=== PATIENT | female | born 1970 | race Caucasian/White ===

== ENCOUNTER → 2018-12-19 | Day surgery (SDC) | payer BC ==
[2018-12-15 14:28] VITALS: BMI 32.3
[~2018-12-19] MED LIST: BUPIVACAINE HCL/PF 0.25% (2.5MG/ML) 10 ML VIAL IJ ONE; DEXAMETHASONE SOD PHOSPHATE 4 MG/1 ML VIAL ONE; KETOROLAC TROMETHAMINE 30 MG/1 ML VIAL ONE; LACTATED RINGERS SOLUTION 1,000 ML IV SCH; LIDOCAINE HCL/PF 2% SDV 5ML VIAL ONE; MIDAZOLAM HCL 2 MG/2 ML SINGLE DOSE VIAL ONE; ONDANSETRON 4 MG/2 ML VIAL ONE; PROPOFOL 20 ML ONE; SODIUM CHLORIDE 0.9% P/F 10 ML VIAL IJ ONE; ceFAZolin SODIUM 1 GM VIAL ONE; oxyCODONE HCL 5 MG TABLET ONE; oxyCODONE HCL 5 MG TABLET PO PRN
[2018-12-19 10:19] VITALS: TEMP 98.2
[2018-12-19 11:35] VITALS: BP 120/74; PULSE 67
--- NOTE | 2018-12-20 11:11 | OP ---
DATE OF OPERATION: 12/19/2018 PREOPERATIVE DIAGNOSIS: 1. Left knee medial and lateral meniscal tear. 2. Left knee cartilage injury. 3. Left knee synovitis. POSTOPERATIVE DIAGNOSIS: 1. Left knee medial and lateral meniscal tear. 2. Left knee cartilage injury. 3. Left knee synovitis. PROCEDURE: 1. Left knee arthroscopy, partial meniscectomy medial and lateral meniscus. CPT code 37298. 2. Left knee arthroscopy with chondroplasty, abrasion-plasty. CPT code 95718. 3. Left knee arthroscopy with synovectomy. CPT code 51251. SURGEON: Lewis Owens MD STADIUM MANAGER: ROYA Valdovinos ANESTHESIA: ANESTHESIOLOGIST: FINDINGS: 1. Medial meniscus body to posterior horn tear. 2. Lateral meniscus posterior horn tear. 3. Synovitis, medial femoral condyle. 4. ACL and PCL intact. 5. . 6. Grade 1-2 cartilage injury, patellofemoral trochlea and patellofemoral joint. PROCEDURE: Informed consent was obtained. The patient came to the operating room, where the lower extremity was prepped and draped in a sterile fashion. A tourniquet was placed on the upper thigh, but not inflated. Using standard arthroscopic technique, a lateral incision and portal was made to allow for introduction of the camera into the suprapatellar bursa. This was then taken to the medial joint line, where under direct visualization, a medial incision and portal was made. Excessive synovium noted in the medial, lateral and patellofemoral and notch area was removed by an upbiter, shaver and Bovie cautery. This was found to bring in inflammatory tissue into the joint surface, a source of pain and dysfunction. Probing of the medial and lateral meniscus found tears, as described in the findings. These were removed with the upbiter and shaver and taken back to a stable rim. Grade 2 to 3 degenerative changes were treated with a chondroplasty, removing all flaking surfaces with low-setting Bovie along the periphery to prevent further flaking. Grade 4 changes, as noted, were treated with an abrasion plasty, creating a bleeding surface at the bone/cartilage interface. Aggressive debridement with shaver/bur created bleeding surface. Microfracture also done when indicated in findings. All areas of the knee were once again re-examined. The knee was then drained and a single suture was placed in all portals. A sterile dressing was placed and the patient was transferred to the recovery room without complication. The PA listed above was present and assisted at surgery. Their presence was absolutely medically necessary for the completion of the procedure. They helped hold the arthroscopy, pass instruments (and implants when indicated), and the procedure could not have been completed without their assistance. LEWIS OWENS M.D. [id number]
--- NOTE | 2018-12-23 16:14 | PATH ---
Surgical Pathology Report Patient Name: PARTHA REDDY [facility]. Rec. #: [id number] /Age/Gender: 1970 (Age: 48) / F Account: [id number] Location: [facility] AM[facility] Taken: 12/19/2018 Received: 12/19/2018 Reported: 12/23/2018 Physicians: Anshul Jeff M.D. Specimen(s) Received LEFT KNEE SHAVINGS Clinical History Derangement left knee Final Diagnosis LEFT KNEE SHAVINGS: CARTILAGINOUS AND FIBROSYNOVIAL TISSUE WITH DEGENERATIVE CHANGE. Electronically Signed Denisse Gonzales M.D. Gross Description Received in formalin, labeled "left knee shavings," is a 4.0 x 3.3 x 0.3 cm. aggregate of jacques-yellow soft tissue fragments. A livestock sales representative portion is submitted in one cassette. /12/22/2018 saudi12/22/2018
== END | disposition home or self-care (01) ==
LOC: FASU 06:55
PROVIDERS: ATTEND Orthopaedic Surgery
PROC: 0SBD4ZZ Excision of Left Knee Joint, Percutaneous Endoscopic Approach (ICD-10-PCS; 2018-12-19)
PROC: 0SBD4ZZ Excision of Left Knee Joint, Percutaneous Endoscopic Approach (ICD-10-PCS; 2018-12-19)
PROC: 0SBD4ZZ Excision of Left Knee Joint, Percutaneous Endoscopic Approach (ICD-10-PCS; principal; 2018-12-19 08:30)
DX: S83.242A Other tear of medial meniscus, current injury, left knee, initial encounter (principal); S83.282A Other tear of lateral meniscus, current injury, left knee, initial encounter; S83.8X2A Sprain of other specified parts of left knee, initial encounter; M65.862 Other synovitis and tenosynovitis, left lower leg; X58.XXXA Exposure to other specified factors, initial encounter; Y93.9 Activity, unspecified; Y92.9 Unspecified place or not applicable
CPT/HCPCS: 84703; 88304-TC; 94760

== ENCOUNTER 2019-03-16 09:26 | Inpatient (IN) | payer BC ==
[2019-03-13 12:39] VITALS: BMI 34.3
[2019-03-16] MEDS ORDERED: MIDAZOLAM HCL 2 MG/2 ML SINGLE DOSE VIAL ONE ×2 (11:21→12:11)
[2019-03-16] MEDS ORDERED: BUPIVACAINE HCL/PF (5 MG/ML) 30 ML VIAL IJ ONE (11:21)
--- NOTE | 2019-03-16 11:52 | HP ---
Admitting History and Physical - Admission Chief Complaint: Morbid obesity History Source: Patient Limitations to Obtaining History: No Limitations - Past Medical History Pulmonary: Yes: Asthma ...LMP: 03/13/19 - Past Surgical History Additional Past Surgical History: Left knee surgery - Smoking History Smoking history: Never smoked Aproximately how many cigarettes per day: 0 - Alcohol/Substance Use Hx Alcohol Use: Yes (SOCIAL) Home Medications - Allergies Allergies/Adverse Reactions: Allergies Allergy/AdvReac Type Severity Reaction Status Date / Time No Known Allergies Allergy Verified 03/16/19 10:08 - Home Medications Home Medications: Ambulatory Orders Fluticasone/Salmeterol [Advair 250-50 Diskus] 1 each IH HS 12/15/18 Montelukast Sodium [Singulair] 10 mg PO HS 12/15/18 Albuterol Sulfate Inhaler - [Ventolin HFA Inhaler -] 1 - 2 inh IH Q4H PRN Family Disease History - Family Disease History Family History: Denies Review of Systems - Review of Systems Constitutional: denies: Chills, Fever Neck: reports: No Symptoms Cardiovascular: reports: No Symptoms Respiratory: reports: No Symptoms Gastrointestinal: reports: No Symptoms Neurological: reports: No Symptoms Pain Intensity: 0 Physical Examination Vital Signs: Vital Signs Temperature 98.4 F 03/16/19 09:41 Pulse Rate 78 03/16/19 09:41 Respiratory Rate 17 03/16/19 09:41 Blood Pressure 132/88 03/16/19 09:41 O2 Sat by Pulse Oximetry (%) 99 03/16/19 09:43 Constitutional: Yes: Calm Cardiovascular: Yes: WNL Respiratory: Yes: Regular Gastrointestinal: Yes: Soft, Abdomen, Obese Neurological: Yes: Alert, Oriented Problem List - Problems (1) Morbid obesity due to excess calories Code(s): E66.01 - MORBID (SEVERE) OBESITY DUE TO EXCESS CALORIES (2) Obstructive sleep apnea Code(s): G47.33 - OBSTRUCTIVE SLEEP APNEA (ADULT) (PEDIATRIC) Assessment/Plan Laparoscopic possible open vertical sleeve gastrectomy possible liver biopsy, upper endoscopy
[2019-03-16] MEDS ORDERED: ceFAZolin SODIUM 1 GM VIAL ONE (12:10)
[2019-03-16] MEDS ORDERED: ONDANSETRON 4 MG/2 ML VIAL ONE ×2 (12:10→13:41)
[2019-03-16] MEDS ORDERED: DEXAMETHASONE SOD PHOSPHATE 4 MG/1 ML VIAL ONE (12:10)
[2019-03-16] MEDS ORDERED: fentaNYL CITRATE 250 MCG/5 ML VIAL ONE (12:10)
[2019-03-16] MEDS ORDERED: ROCURONIUM BROMIDE 50 MG/5 ML VIAL ONE (12:11)
[2019-03-16] MEDS ORDERED: BUPIVACAINE HCL 0.25% 125 MG/50 ML VIAL ONE (13:36)
[2019-03-16] MEDS ORDERED: NEOSTIGMINE METHYLSULFATE 0.5 MG/ML - 10 ML MDV ONE (13:43)
[2019-03-16] MEDS ORDERED: GLYCOPYRROLATE 0.2 MG/1 ML VIAL ONE (13:44)
[2019-03-16] MEDS ORDERED: ALBUTEROL SO4 8 GM HFA INHALER IH PRN (13:50)
[2019-03-16] MEDS ORDERED: FAMOTIDINE 20 MG/50 ML IVPB 20 MG/50 ML MG IVPB ONE (13:52)
--- NOTE | 2019-03-16 13:53 | OP ---
Operative Note - Note: Operative Date: 03/16/19 Pre-Operative Diagnosis: Morbid obesity. Severe obstructive sleep apnea Operation: Diagnostic laparoscopy. Laparoscopic vertical sleeve gastrectomy. Laparoscopic wedge liver biopsy Post-Operative Diagnosis: Same as Pre-op (as well as hepatomegaly) Surgeon: Jake Jaffe Telephone Information Supervisor: David Benitez Anesthesia: General Specimens Removed: Greater curvature of stomach. Liver biopsy Estimated Blood Loss (mls): 30 Drains & Tubes with Location: 36 fr bougie Operative Report Dictated: Yes
[2019-03-16] MEDS ORDERED: SODIUM CHLORIDE 1,000 ML IV SCH (14:00)
[2019-03-16] MEDS: METOCLOPRAMIDE HCL INJECTION 10 MG/2 ML VIAL IVPUSH SCH ×3 (14:05→21:02)
[2019-03-16] MEDS: ACETAMINOPHEN 1000 MG/100 ML VIAL (NON FORMULARY) IVPB SCH ×3 (14:10→21:01)
[2019-03-16] MEDS ORDERED: FAMOTIDINE 20 MG PREMIXED IVPB IVPB ONE (14:15)
[2019-03-16] MEDS ORDERED: HALOPERIDOL LACTATE 5 MG/ML ONE (14:24)
[2019-03-16] MEDS ORDERED: ONDANSETRON 4 MG/2 ML VIAL IVPUSH PRN (14:28)
[2019-03-16] MEDS ORDERED: HALOPERIDOL LACTATE 5 MG/ML IV ONE (14:30)
[2019-03-16 15:12] LABS: ALBUMIN 4.2 g/dl (3.4-5.0); BILIRUBIN,TOTAL 0.6 mg/dl (0.2-1); CREATININE 0.7 mg/dl (0.55-1.3); POTASSIUM 4.2 mmol/L (3.5-5.1); TOT PROT 7.4 g/dl (6.4-8.2)
[2019-03-16 15:53] LABS: HEMOGLOBIN 14.5 GM/dl (10.7-15.3); MCH 29.3 pg (25.7-33.7); MCHC 32.2 g/dl (32.0-36.0); MEAN CELL VOLUME 90.9 fl (80-96); MEAN PLT VOLUME 8.9 fl (7.5-11.1); PLATELET COUNT 259 K/MM3 (134-434); RBC 4.95 M/mm3 (3.60-5.2); RDW 12.8 % (11.6-15.6); WHITE BLOOD COUNT 12.9 K/mm3 (4.0-10.8)
--- NOTE | 2019-03-16 16:27 | CONSULT ---
Consult Consult Specialty:: IM Reason for Consultation:: post-op medical management - History of Present Illness Chief Complaint: obese. denies chest pain, palpitations, nausea, vomiting, diarrhea History of Present Illness: 49 yo man came in for Laparoscopic possible open vertical sleeve gastrectomy possible liver biopsy, upper endoscopy - History Source History Provided By: Patient Limitations to Obtaining History: No Limitations - Past Medical History Pulmonary: Yes: Asthma ...LMP: 03/13/19 - Alcohol/Substance Use Hx Alcohol Use: Yes (SOCIAL) - Smoking History Smoking history: Never smoked Aproximately how many cigarettes per day: 0 Home Medications - Allergies Allergies/Adverse Reactions: Allergies Allergy/AdvReac Type Severity Reaction Status Date / Time No Known Allergies Allergy Verified 03/16/19 10:08 - Home Medications Home Medications: Ambulatory Orders Fluticasone/Salmeterol [Advair 250-50 Diskus] 1 each IH HS 12/15/18 Montelukast Sodium [Singulair] 10 mg PO HS 12/15/18 Albuterol Sulfate Inhaler - [Ventolin HFA Inhaler -] 1 - 2 inh IH Q4H PRN Famotidine [Pepcid] 20 mg PO BID #60 tablet 03/16/19 Review of Systems - Review of Systems Constitutional: reports: No Symptoms Eyes: reports: No Symptoms HENT: reports: No Symptoms Neck: reports: No Symptoms Cardiovascular: reports: No Symptoms Respiratory: reports: No Symptoms Gastrointestinal: reports: No Symptoms Genitourinary: reports: No Symptoms Musculoskeletal: reports: No Symptoms Integumentary: reports: No Symptoms Neurological: reports: No Symptoms Endocrine: reports: No Symptoms Hematology/Lymphatic: reports: No Symptoms Psychiatric: reports: No Symptoms Physical Exam Vital Signs: Vital Signs Temperature 97.6 F 03/16/19 16:04 Pulse Rate 65 03/16/19 16:04 Respiratory Rate 18 03/16/19 16:04 Blood Pressure 125/67 03/16/19 16:04 O2 Sat by Pulse Oximetry (%) 96 03/16/19 16:03 Constitutional: Yes: Well Nourished Eyes: Yes: WNL HENT: Yes: WNL Neck: Yes: WNL Cardiovascular: Yes: WNL Respiratory: Yes: WNL Gastrointestinal: Yes: WNL Renal/: Yes: WNL Musculoskeletal: Yes: WNL Extremities: Yes: WNL Edema: No Peripheral Pulses WNL: Yes Integumentary: Yes: WNL Neurological: Yes: WNL ...Motor Strength: WNL Psychiatric: Yes: WNL Labs: CBC, BMP 03/16/19 14:22 03/16/19 14:22 Assessment/Plan -49 yo lady Morbid obesity. Severe obstructive sleep apnea. Diagnostic laparoscopy. Laparoscopic vertical sleeve gastrectomy. Laparoscopic wedge liver biopsy. cont pain management. incentive spiromrety. -GI, DVT prophylaxis. H/O asthma: cont bronchodilators. on zofran for nausea. -OOB as tolerated -blood work and meds reviewed -possible DC home tomorrow if stable. --
[2019-03-16] MEDS: HYDROmorphone HCL CARPU-JECT 1 MG/1 ML DISP.SYRIN IVPB PRN (16:59)
[2019-03-16] MEDS: ONDANSETRON 4 MG/2 ML VIAL IVPUSH SCH ×2 (17:46→21:02)
--- NOTE | 2019-03-16 19:31 | SPEC ---
DATE OF OPERATION: 03/16/2019 SURGEON: Jake Jaffe MD PRECAST CONCRETE IRONWORKER: David Benitez MD PLACE OF SURGERY: [facility], [address] [place] [address] PREOPERATIVE DIAGNOSES: 1. Morbid obesity. 2. Severe obstructive sleep apnea. POSTOPERATIVE DIAGNOSES: 1. Morbid obesity. 2. Severe obstructive sleep apnea. 3. Hepatomegaly. PROCEDURE: 1. Diagnostic laparoscopy. 2. Laparoscopic vertical sleeve gastrectomy. 3. Laparoscopic wedge liver biopsy. SPECIMEN: 1. Greater curvature of the stomach. 2. Liver biopsy. ESTIMATED BLOOD LOSS: 30 mL. DRAINS: None. ANESTHESIA: GET. REASON FOR PROCEDURE: This is a 49-year-old female who presented to the office for weight loss options. After describing different options, she decided to proceed with a laparoscopic, possible open vertical sleeve gastrectomy, possible liver biopsy, upper endoscopy. The risks and benefits of the procedure were explained. RISKS AND BENEFITS: After describing the different options for weight loss management, the patient decided to proceed with a laparoscopic, possible open vertical sleeve gastrectomy. The patient was seen by the respective subspecialties and cleared for surgery. The risks and benefits of the procedure were explained. These included bleeding, infection, hernia, SC, DVT, PE, injury to surrounding structures including the liver, colon, bowel, spleen, esophagus, vessel injury, nerve injury, weight regain, gastric leak, staple line leak, sleeve leak, obstruction, vitamin deficiency, hair loss and as some of the possible complications. The patient understood and signed informed consent. DESCRIPTION OF PROCEDURE: The patient was placed supine on the operating room table. The patient underwent general endotracheal intubation. The arms were brought out at 90 degrees and secured. A footboard was placed and the legs were secured laterally with padding. The abdomen was prepped and draped in the usual sterile fashion. A timeout was performed. An incision was made in the left upper quadrant and a Veress needle inserted. Pneumoperitoneum was established. Subsequently, the Veress needle was removed and a 5-mm trocar was placed under direct visualization with the laparoscope. The laparoscopic camera was then inserted and inspection of the abdominal cavity was performed. An incision was then made in the supraumbilical area and a 15-mm trocar was placed under direct visualization. A 5-mm trocar was then placed in the right upper quadrant and a 5-mm trocar was placed below the left subcostal margin. A stab wound was made in the subxiphoid area and a Gisela clamp inserted and removed to dilate the tract. A Torres liver retractor was inserted. The post was secured at the bedside by the nursing staff. The patient was placed in steep reverse Trendelenburg position and the Torres liver retractor was used to secure the liver towards the anterior abdominal wall. The pylorus was identified and 6 cm proximal to it, the lesser sac was entered using the LigaSure device. All lateral attachments to the greater curvature of the stomach, including the short gastric vessels, were ligated using the LigaSure device toward the gastrosplenic and gastrophrenic ligaments. Once this was done in its entirety, it was confirmed that all tubes within the nasal or oropharyngeal cavity, including a temperature probe were removed by Anesthesia. The bougie was then inserted by Anesthesia. Transection of the stomach was then begun staying adjacent to the bougie but away from the angularis. Transection of the stomach was performed near the portion of the stomach where the lesser sac was entered. Two laparoscopic Endo-FRANKIE black cristina were used at this location. Laparoscopic Endo FRANKIE purple staple loads were then used for the remainder of the transection until the greater curvature of the stomach was fully transected. This was done staying close to the bougie. Care was taken to stay away from the angle of His cephalad. The staple line was then inspected. Hemostasis was identified. A leak test was then performed. It was clamped distally to the staple line. Irrigation solution was placed in the left upper quadrant and air was insufflated by Anesthesia into the sleeve. No leaks were identified. No obstruction was identified. This was done through the entirety of the staple line. The stomach was suctioned and the bougie removed fully intact under direct visualization. At this point, the irrigation solution was suctioned and again, hemostasis was noted. A wedge liver biopsy was then performed. The left lobe of the liver was identified. A portion of the edge of the left lobe of the liver was grasped. Using electrocautery, a wedge of the left liver was excised. The specimen was removed and sent off the field. Hemostasis of the wedge liver biopsy site was attained and noted using electrocautery. The 15-mm supraumbilical trocar was then removed and the greater curvature specimen removed from the site using a sponge stick gregory. A Jerry-Xuan device was then used to close the fascia with a 0 Vicryl suture at the site. Again, hemostasis was noted. The Torres liver retractor was then removed under direct visualization. Pneumoperitoneum was desufflated. Hemostasis was noted at all incision sites and Marcaine was injected at all incision sites. A 3-0 Vicryl suture was used to close the deep subcutaneous tissue at the 15-mm incision site. All incision sites were closed using 4-0 Biosyn. Sterile dressings were applied. The patient tolerated the procedure well and was transferred to the recovery room in stable condition. Chanell YADAV/[id number]
[2019-03-16] MEDS: FAMOTIDINE 20 MG/50 ML IVPB 20 MG/50 ML MG IVPB SCH (21:02)
[2019-03-16] MEDS: ENOXAPARIN NA (PORCINE) 40 MG/0.4 ML DISP.SYRIN SQ SCH ×2 (21:02→21:17)
[2019-03-16] MEDS ORDERED: MONTELUKAST NA 10 MG TABLET PO SCH (22:00)
[2019-03-17] MEDS: HYDROmorphone HCL CARPU-JECT 1 MG/1 ML DISP.SYRIN IVPB PRN (00:29)
[2019-03-17] MEDS: METOCLOPRAMIDE HCL INJECTION 10 MG/2 ML VIAL IVPUSH SCH ×2 (01:56→08:01)
[2019-03-17] MEDS: ONDANSETRON 4 MG/2 ML VIAL IVPUSH SCH ×3 (01:56→10:59)
[2019-03-17] MEDS: ACETAMINOPHEN 1000 MG/100 ML VIAL (NON FORMULARY) IVPB SCH ×2 (01:57→08:00)
[2019-03-17 08:17] LABS: HEMATOCRIT 39.2 % (32.4-45.2); HEMOGLOBIN 13.3 GM/dl (10.7-15.3); MCH 30.4 pg (25.7-33.7); MCHC 33.9 g/dl (32.0-36.0); MEAN CELL VOLUME 89.7 fl (80-96); MEAN PLT VOLUME 8.6 fl (7.5-11.1); PLATELET COUNT 252 K/MM3 (134-434); RBC 4.37 M/mm3 (3.60-5.2); RDW 12.2 % (11.6-15.6); WHITE BLOOD COUNT 13.8 K/mm3 (4.0-10.8)
[2019-03-17 08:25] LABS: ALBUMIN 3.9 g/dl (3.4-5.0); BILIRUBIN,TOTAL 1.1 mg/dl (0.2-1); CALCIUM 8.3 mg/dl (8.5-10); CREATININE 0.7 mg/dl (0.55-1.3); POTASSIUM 3.9 mmol/L (3.5-5.1); TOT PROT 6.9 g/dl (6.4-8.2)
--- NOTE | 2019-03-17 10:03 | PN ---
Progress Note, Physician Chief Complaint: s/p gastric sleeve under general anesthesia History of Present Illness: post op day one - Current Medication List Current Medications: Active Medications Albuterol Sulfate (Ventolin Hfa Inhaler -) 1 - 2 puff IH Q4H PRN PRN Reason: ASTHMA Enoxaparin Sodium (Lovenox -) 40 mg SQ BID [facility] Last Admin: 03/16/19 21:17 Dose: Not Given Hydromorphone HCl (Dilaudid Injection -) 1 mg IVPB Q3H PRN PRN Reason: PAIN LEVEL 4 - 6 Last Admin: 03/17/19 00:29 Dose: 1 mg Famotidine/Sodium Chloride (Pepcid 20 Mg Premixed Ivpb -) 20 mg in 50 mls @ 100 mls/hr IVPB BID [facility] Last Admin: 03/16/19 21:02 Dose: 100 mls/hr Sodium Chloride (Normal Saline -) 1,000 mls @ 150 mls/hr IV ASDIR [facility] Last Admin: 03/16/19 15:39 Dose: Not Given Metoclopramide HCl (Reglan Injection -) 10 mg IVPUSH Q6H [facility] Last Admin: 03/17/19 08:01 Dose: 10 mg Montelukast Sodium (Singulair -) 10 mg PO HS [facility] Last Admin: 03/16/19 21:02 Dose: Not Given Non-Formulary Medication (Fluticasone/Salmeterol [Advair 250-50 Diskus]) 1 each IH HS [facility] Ondansetron HCl (Zofran Injection) 4 mg IVPUSH Q4H [facility] Last Admin: 03/17/19 05:44 Dose: 4 mg - Objective Vital Signs: Vital Signs Temperature 98.7 F 03/17/19 04:00 Pulse Rate 85 03/17/19 04:00 Respiratory Rate 18 03/17/19 04:00 Blood Pressure 131/75 03/17/19 04:00 O2 Sat by Pulse Oximetry (%) 98 03/16/19 20:29 Constitutional: Yes: Well Nourished Cardiovascular: Yes: WNL Respiratory: Yes: WNL Gastrointestinal: Yes: WNL Labs: CBC, BMP 03/17/19 07:30 03/17/19 07:30 Assessment/Plan Pain controlled, no nausea or vomiting, no adverse anesthetic effects, dept of anesthesiology will sign off care at this time
[2019-03-17] MEDS: FAMOTIDINE 20 MG/50 ML IVPB 20 MG/50 ML MG IVPB SCH (10:05)
--- NOTE | 2019-03-17 10:33 | PN ---
Progress Note, Physician History of Present Illness: 49 yo man came in for Laparoscopic possible open vertical sleeve gastrectomy possible liver biopsy, upper endoscopy - Current Medication List Current Medications: Active Medications Albuterol Sulfate (Ventolin Hfa Inhaler -) 1 - 2 puff IH Q4H PRN PRN Reason: ASTHMA Enoxaparin Sodium (Lovenox -) 40 mg SQ BID [facility] Last Admin: 03/16/19 21:17 Dose: Not Given Hydromorphone HCl (Dilaudid Injection -) 1 mg IVPB Q3H PRN PRN Reason: PAIN LEVEL 4 - 6 Last Admin: 03/17/19 00:29 Dose: 1 mg Famotidine/Sodium Chloride (Pepcid 20 Mg Premixed Ivpb -) 20 mg in 50 mls @ 100 mls/hr IVPB BID [facility] Last Admin: 03/16/19 21:02 Dose: 100 mls/hr Sodium Chloride (Normal Saline -) 1,000 mls @ 150 mls/hr IV ASDIR [facility] Last Admin: 03/16/19 15:39 Dose: Not Given Metoclopramide HCl (Reglan Injection -) 10 mg IVPUSH Q6H [facility] Last Admin: 03/17/19 08:01 Dose: 10 mg Montelukast Sodium (Singulair -) 10 mg PO HS [facility] Last Admin: 03/16/19 21:02 Dose: Not Given Non-Formulary Medication (Fluticasone/Salmeterol [Advair 250-50 Diskus]) 1 each IH HS [facility] Ondansetron HCl (Zofran Injection) 4 mg IVPUSH Q4H [facility] Last Admin: 03/17/19 05:44 Dose: 4 mg - Objective Vital Signs: Vital Signs Temperature 98.7 F 03/17/19 04:00 Pulse Rate 85 03/17/19 04:00 Respiratory Rate 18 03/17/19 04:00 Blood Pressure 131/75 03/17/19 04:00 O2 Sat by Pulse Oximetry (%) 98 03/16/19 20:29 Constitutional: Yes: Well Nourished, No Distress Eyes: Yes: WNL HENT: Yes: WNL Neck: Yes: WNL Cardiovascular: Yes: WNL Respiratory: Yes: WNL Gastrointestinal: Yes: WNL Genitourinary: Yes: WNL Musculoskeletal: Yes: WNL Extremities: Yes: WNL Edema: No Peripheral Pulses WNL: Yes Integumentary: Yes: WNL Neurological: Yes: WNL ...Motor Strength: WNL Psychiatric: Yes: WNL Labs: CBC, BMP 03/17/19 07:30 03/17/19 07:30 Assessment/Plan -49 yo lady Morbid obesity. Severe obstructive sleep apnea. Diagnostic laparoscopy. Laparoscopic vertical sleeve gastrectomy. Laparoscopic wedge liver biopsy. cont pain management. incentive spiromrety. no complications. feels better today. -GI, DVT prophylaxis. H/O asthma: cont bronchodilators. on zofran for nausea. -OOB as tolerated -blood work and meds reviewed -DC plan as per primary team --
[2019-03-17] MEDS ORDERED: SODIUM CHLORIDE 1,000 ML IV SCH (11:15)
[2019-03-17] MEDS ORDERED: oxyCODONE HCL 5 MG TABLET PO PRN (11:15)
--- NOTE | 2019-03-17 11:19 | PN ---
Progress Note (short form) - Note Progress Note: POD 1 Nausea controlled Vital Signs Period Temp Pulse Resp BP Sys/Carr Pulse Ox Last 24 Hr 97.6 F-98.7 F 64-93 14-21 121-158/65-98 95-100 CBC,CMP WBC 13.8 K/mm3 (4.0-10.8) H 03/17/19 07:30 RBC 4.37 M/mm3 (3.60-5.2) 03/17/19 07:30 Hgb 13.3 GM/dl (10.7-15.3) 03/17/19 07:30 Hct 39.2 % (32.4-45.2) 03/17/19 07:30 MCV 89.7 fl (80-96) 03/17/19 07:30 MCH 30.4 pg (25.7-33.7) 03/17/19 07:30 MCHC 33.9 g/dl (32.0-36.0) 03/17/19 07:30 RDW 12.2 % (11.6-15.6) 03/17/19 07:30 Plt Count 252 K/MM3 (134-434) 03/17/19 07:30 MPV 8.6 fl (7.5-11.1) 03/17/19 07:30 Sodium 133 mmol/L (136-145) L 03/17/19 07:30 Potassium 3.9 mmol/L (3.5-5.1) 03/17/19 07:30 Chloride 105 mmol/L (98-107) 03/17/19 07:30 Carbon Dioxide 23 mmol/L (21-32) 03/17/19 07:30 Anion Gap 5 MMOL/L (8-16) L 03/17/19 07:30 BUN 8.0 mg/dl (7-18) 03/17/19 07:30 Creatinine 0.7 mg/dl (0.55-1.3) 03/17/19 07:30 Est GFR (CKD-EPI)AfAm 117.09 03/17/19 07:30 Est GFR (CKD-EPI)NonAf 101.02 03/17/19 07:30 Random Glucose 105 mg/dl (74-106) 03/17/19 07:30 Calcium 8.3 mg/dl (8.5-10) L 03/17/19 07:30 Total Bilirubin 1.1 mg/dl (0.2-1) H 03/17/19 07:30 AST 51 U/L (15-37) H 03/17/19 07:30 ALT 49 U/L (13-61) 03/17/19 07:30 Alkaline Phosphatase 83 U/L (45-117) 03/17/19 07:30 Total Protein 6.9 g/dl (6.4-8.2) 03/17/19 07:30 Albumin 3.9 g/dl (3.4-5.0) 03/17/19 07:30 UGI: no leak/obstruction Clears Discharge planning Problem List - Problems (1) Morbid obesity due to excess calories Code(s): E66.01 - MORBID (SEVERE) OBESITY DUE TO EXCESS CALORIES (2) Obstructive sleep apnea Code(s): G47.33 - OBSTRUCTIVE SLEEP APNEA (ADULT) (PEDIATRIC)
[2019-03-17] MEDS: ENOXAPARIN NA (PORCINE) 40 MG/0.4 ML DISP.SYRIN SQ SCH (11:59)
[2019-03-17 15:24] VITALS: BP 120/71; PULSE 78; TEMP 98
--- NOTE | 2019-03-20 12:15 | PATH ---
Surgical Pathology Report Patient Name: PARTHA REDDY Med. Rec. #: [id number] /Age/Gender: 1970 (Age: 49) / F Account: [id number] Location: REPLACED BY [facility] Taken: 03/16/2019 Received: 03/16/2019 Reported: 03/20/2019 Physicians: Jake Jaffe M.D. Specimen(s) Received A: GREATER CURVATURE STOMACH B: LIVER BIOPSY Clinical History Morbid obesity Final Diagnosis A. GREATER CURVATURE OF STOMACH, LAPAROSCOPIC GASTRIC SLEEVE EXCISION: PORTION OF STOMACH SHOWING NO SIGNIFICANT PATHOLOGIC FINDINGS. IMMUNOSTAIN IS NEGATIVE FOR H. PYLORI ORGANISMS. B. LIVER, BIOPSY: PORTION OF LIVER SHOWING MILD STEATOSIS (~5%). TRICHROME STAIN SHOWS NO SIGNIFICANT INCREASE IN FIBROSIS. IRON STAIN SHOWS NO INCREASE IN IRON DEPOSITS. Electronically Signed Ashley Avina M.D. Gross Description A. Received in formalin, labeled "greater curvature of stomach," is a 90 gram, 20.0 x 3.0 x 2.1 cm. portion of stomach with a stapled margin of resection. The serosa is jacques-worrell with minimal attached fat. The mucosa is jacques-pink with normal folds. No mucosal masses are identified. Reproduction Machine Loader sections are submitted in one cassette. B. Received in formalin labeled "liver biopsy," is a 2.5 x 0.9 x 0.5 cm jacques-brown portion of soft tissue, consistent with a liver biopsy. The specimen is bisected and entirely submitted in one cassette. 03/17/201903/17/2019
== END 2019-03-17 15:05 | disposition home or self-care (01) | DRG 621 ==
LOC: FM/S 09:26
PROVIDERS: ADMIT Surgery; ATTEND Surgery
PROC: 0DB64Z3 Excision of Stomach, Percutaneous Endoscopic Approach, Vertical (ICD-10-PCS; principal; 2019-03-16 12:42)
PROC: 0FB24ZX Excision of Left Lobe Liver, Percutaneous Endoscopic Approach, Diagnostic (ICD-10-PCS; 2019-03-16 12:42)
DX: E66.01 Morbid (severe) obesity due to excess calories (principal); R16.0 Hepatomegaly, not elsewhere classified; J45.909 Unspecified asthma, uncomplicated; G47.33 Obstructive sleep apnea (adult) (pediatric); Z68.34 Body mass index [BMI] 34.0-34.9, adult
CPT/HCPCS: 36415; 74241-TC-FY; 80053; 84703; 85027; 88305-TC; 88313-TC; 94760; J0131